=== PATIENT | female | born 1955 | race African-American/Black ===

== ENCOUNTER → 2018-03-24 | Day surgery (SDC) | payer BC ==
[~2018-03-24] MED LIST: ACETAMINOPHEN 1000 MG/100 ML 100 ML IV ONE; LACTATED RINGER'S 1000 ML INJ 1,000 ML ONE; LIDOCAINE 1%/EPINEPHrine 1:100,000 SOLN 30 ML VIAL ONE; MIDAZOLAM HCL 2 MG/2 ML VIAL ONE; ONDANSETRON HCL 4 MG/2 ML VIAL IV PUSH ONE; PROPOFOL 200 MG/20 ML AMP IV ONE; ceFAZolin 2 GM PREMIX 50 ML ONE
--- NOTE | 2018-03-24 11:11 | PD.OP ---
cc: Fredrick Diallo MD Operative Report Date of Surgery: March 24, 2018 Preoperative Diagnosis: Left breast microcalcifications with radial scar Postoperative Diagnosis: Same Procedure: Left breast needle localized lumpectomy, hidden scar technique Anesthesia: General with laryngeal mask Surgeon: Fredrick Diallo [employer] Accountant(s): [id number] Operation and Findings: Indications for procedure This is a very pleasant 62-year-old -[place] woman was found to have microcalcifications in the central portion of her left breast on screening mammography. She had a stereotactic biopsy which demonstrated radial scar. Accommodations were made for surgical lumpectomy due to the findings of radial scar. Intraoperative findings Successful removal of area of concern as confirmed on specimen imaging. Specimen sent to pathology with short stitch superior anterior and long stitch lateral posterior. Description of procedure in detail The patient was identified as Rosa Newton taken to the operating room and placed in a supine position following left breast needle localization in the imaging center. Sequential compression device were placed on bilateral lower extremities. Following induction of adequate general anesthesia the left breast was prepped and draped in the usual sterile fashion with Betadine. A timeout procedure was performed. Following completion timeout procedure to everyone's satisfaction in the room, local anesthetic was infiltrated along the periareolar edge adjacent to the localization needle. Incision was carried out with a scalpel and hemostasis controlled with electrocautery. Dissection continued posteriorly into very dense fibrous breast tissue, the localization needle was identified within the breast tissue divided at the level of the skin and brought into the surgical wound. A cylindrical core of breast tissue favoring the superior aspect of the localization needle was then from surrounding breast tissue using the electrocautery. The distal portion of the localization needle tip was withdrawn from the wound the specimen marked and sent for imaging. Radiologist called and indicated the areas of concern including the clip and the microcalcifications were contained within the specimen and the specimen was sent to pathology. Wound was irrigated with saline. Small bleeding points were controlled with electrocautery. Once the wound was assured to be dry it was filled with local anesthetic and the layers approximated with interrupted 3-0 Vicryl sutures. Skin incision was approximated with a running 4-0 Monocryl subcuticular suture. Dressings were applied with Mastisol half-inch brown Steri-Strips gauze and Tegaderm. The patient tolerated the procedure without apparent complication. Sponge needle and instrument counts were correct at the end of the case. The patient was transported to PACU in stable condition. Fredrick Diallo MD March 24, 2018 11:11
== END | disposition home or self-care (01) ==
LOC: ESDC 07:25
PROVIDERS: ATTEND Surgery Trauma Surgery
DX: R92.0 Mammographic microcalcification found on diagnostic imaging of breast (principal)
CPT/HCPCS: 00400; 19125; 88307; J0131; J0690; J2250; J2405; J3010; J7120